=== PATIENT | male | born 1990 | race Caucasian/White ===

== ENCOUNTER 2018-05-27 09:02 | Emergency (ER) | payer BC, OTHER ==
[2018-05-27 09:28] VITALS: BP 120/74; PULSE 65; TEMP 98.8; BMI 21.6
--- NOTE | 2018-05-27 10:42 | PDOC ---
History of Present Illness - General Chief Complaint: Cold Symptoms Stated Complaint: LOWER BACK PAIN Time Seen by Provider: 05/27/18 09:51 History Source: Patient Exam Limitations: No Limitations - History of Present Illness Initial Comments: 05/27/18 patient came for evaluation of back pain related to frequent coughing over the past few days. States onset of fevers was yesterday, MAXIMUM TEMPERATURE 101. Has been using [id number]-[id number] medications with minimal resolved. Timing/Duration: reports: just prior to arrival Associated Symptoms: reports: cough, earache, facial pain, fever/chills, nasal congestion, nasal drainage Past History - Travel Traveled outside of the country in the last 30 days: No Close contact w/someone who was outside of country & ill: No - Past Medical History Allergies/Adverse Reactions: Allergies Allergy/AdvReac Type Severity Reaction Status Date / Time No Known Allergies Allergy Verified 05/15/14 11:00 Home Medications: Ambulatory Orders NK [No Known Home Medication] 05/15/14 - Suicide/Smoking/Psychosocial Hx Smoking History: Current every day smoker Have you smoked in the past 12 months: Yes Number of Cigarettes Smoked Daily: 10 Information on smoking cessation initiated: No Hx Alcohol Use: No Drug/Substance Use Hx: No Substance Use Type: Alcohol, Marijuana, Prescribed Review of Systems - Review of Systems Able to Perform ROS?: Yes Is the patient limited [place] proficient: Yes Constitutional: Yes: Symptoms Reported, See HPI, Chills, Fever, Loss of Appetite , Malaise HEENTM: Yes: Symptoms Reported, See HPI, Nose Congestion, Throat Pain Respiratory: Yes: Symptoms reported, See HPI, Cough, Wheezing Musculoskeletal: Yes: Symptoms Reported, See HPI, Muscle Pain Neurological: Yes: Symptoms reported, See HPI, Headache All Other Systems: Reviewed and Negative *Physical Exam - Vital Signs Last Vital Signs Temp Pulse Resp BP Pulse Ox 98.8 F 65 18 120/74 98 05/27/18 09:26 05/27/18 09:26 05/27/18 09:26 05/27/18 09:26 05/27/18 09:26 - Physical Exam Comments: 05/27/18 10:40 GENERAL: [ The pateint is awake, alert, and appropriately interactive.] EYES: [The pupils are equal, round, and reactive to light, with clear, conjunctiva.but glassy] NOSE: [The nose with clear drainage EARS: [The ear canals and tympanic membranes are congested but landmarks easily visualed ] THROAT: [The oropharynx is clear with erythema, no exudates. The mucous membranes are moist.] NECK: [The neck is supple with mildly tender adenopathy, no menigemous] CHEST: [The lungs are coarse but clear without crackles, or wheezes.] HEART: [Heart is regular rhythm, with normal S1 and S2, no murmurs.] ABDOMEN: [The abdomen is soft and nontender with normal bowel sounds. There is no organomegaly and no mass. There is no guarding or rebound.] EXTREMITIES: [Extremities are normal.] NEURO: [Behavior is normal for age.cranky but easily, Tone is normal.] SKIN: [Skin is unremarkable without rash or swelling. There is no bruising, and there are no other signs of injury.] General Appearance: Yes: Nourished, Appropriately Dressed HEENT: positive: SHIR[place], TMs Normal Moderate Sedation - Procedure Monitoring Vital Signs: Procedure Monitoring Vital Signs Temperature 98.8 F 05/27/18 09:26 Pulse Rate 65 05/27/18 09:26 Respiratory Rate 18 05/27/18 09:26 Blood Pressure 120/74 05/27/18 09:26 O2 Sat by Pulse Oximetry (%) 98 05/27/18 09:26 Progress Note - Progress Note Progress Note: Upper respiratory infection, however 5 days into illness therefore outside window for Tamiflu treatment. We'll continue conservative treatments and have follow-up with PMD as needed *DC/Admit/Observation/Transfer Diagnosis at time of Disposition: Upper respiratory infection, viral - Discharge Dispostion Disposition: HOME Condition at time of disposition: Stable Decision to Admit order: No - Referrals Referrals: Haja Petersen [Primary Care Provider] - - Patient Instructions Printed Discharge Instructions: DI for Viral Upper Respiratory Infection -- Adult Additional Instructions: Rest, drink lots of fluids: Teas, water, soups, Pedialyte Saltwater gargles Steamy showers/seem to face break up mucus Avoid contact with others until fevers and cough resolved Lots of handwashing and good hygiene Continue [id number] medications for symptomatic relief Tylenol or Motrin for fever and pain Followup with private physician in one to 2 days as needed Return to emergency department for worsened symptoms, fevers, dehydration - Post Discharge Activity Forms/Work/School Notes: Back to Work
== END 2018-05-27 10:47 | disposition home or self-care (01) ==
LOC: JERFT 09:02
DX: J06.9 Acute upper respiratory infection, unspecified (principal); M54.89 Other dorsalgia
CPT/HCPCS: 99281-25

== ENCOUNTER 2019-02-04 09:27 | Emergency (ER) | payer BC, OTHER ==
[2019-02-04 09:38] VITALS: BP 134/73; PULSE 76; TEMP 98.3; BMI 26.6
--- NOTE | 2019-02-04 10:09 | PDOC ---
History of Present Illness - General Chief Complaint: Pain Stated Complaint: CHEST PAIN Time Seen by Provider: 02/04/19 09:47 History Source: Patient - History of Present Illness Presenting Symptoms: Chest Pain Timing/Duration: reports: intermittent Past History - Past Medical History Allergies/Adverse Reactions: Allergies Allergy/AdvReac Type Severity Reaction Status Date / Time No Known Allergies Allergy Verified 02/04/19 09:38 Home Medications: Ambulatory Orders NK [No Known Home Medication] 05/15/14 COPD: No - Psycho Social/Smoking Cessation Hx Smoking History: Never smoked Have you smoked in the past 12 months: Yes Number of Cigarettes Smoked Daily: 10 Hx Alcohol Use: No Drug/Substance Use Hx: No Substance Use Type: Alcohol, Marijuana, Prescribed Review of Systems - Review of Systems Constitutional: No: Chills, Fever Respiratory: No: Cough, Shortness of Breath Cardiac (ROS): Yes: Chest Pain. No: Lightheadedness, Palpitations, Syncope *Physical Exam - Vital Signs Last Vital Signs Temp Pulse Resp BP Pulse Ox 98.3 F 76 14 134/73 99 02/04/19 09:33 02/04/19 09:33 02/04/19 09:33 02/04/19 09:33 02/04/19 09:33 - Physical Exam General Appearance: Yes: Appropriately Dressed. No: Apparent Distress HEENT: positive: Normal Voice Neck: positive: Supple Respiratory/Chest: positive: Lungs Clear, Normal Breath Sounds. negative: Respiratory Distress Cardiovascular: positive: Regular Rate, S1, S2 Integumentary: positive: Dry, Warm Neurologic: positive: Fully Oriented, Alert, Normal Mood/Affect Medical Decision Making - Medical Decision Making 02/04/19 10:10 28-year-old male, no significant history here with chest pain. Patient states for the past 3 days he wakes up with left-sided non-radiating chest pain that he is unable to describe, 4-5/10, intermittent and only worse with certain movements. No shortness of breath, palpitations cough fever or chills. No history of similar pain. No obvious inciting factors. No illicit drug use. No obvious risk factors for DVT/PE. No significant family history see exam CP No RF for cardiac source, PERCs out and no infectious sx Exam wl -EKG unremarkable -Dc to f/u with PMD as needed Discharge - Discharge Information Problems reviewed: Yes Clinical Impression/Diagnosis: Chest pain Qualifiers: Chest pain type: unspecified Qualified Code(s): R07.9 - Chest pain, unspecified Condition: Good Disposition: HOME - Follow up/Referral - Patient Discharge Instructions Patient Printed Discharge Instructions: DI for Chest Pain Additional Instructions: The cause of your chest pain is unclear at this time as your exam and EKG were normal here. If symptoms persist, please follow-up with your PMD for further evaluation - Post Discharge Activity
--- NOTE | 2019-02-04 11:26 | EKG ---
Test Reason : Blood Pressure : / mmHG Vent. Rate : 060 BPM Atrial Rate : 060 BPM P-R Int : 112 ms QRS Dur : 106 ms QT Int : 402 ms P-R-T Axes : 072 059 067 degrees QTc Int : 402 ms NORMAL SINUS RHYTHM INCOMPLETE RIGHT BUNDLE BRANCH BLOCK MODERATE VOLTAGE CRITERIA FOR LVH, MAY BE NORMAL VARIANT BORDERLINE ECG NO PREVIOUS ECGS AVAILABLE Confirmed by Hammad Hensley MD ([id number]) on 02/04/2019 11:25:58 AM Referred By: Confirmed By:Hammad Hensley MD
== END 2019-02-04 10:02 | disposition home or self-care (01) ==
LOC: JERFT 09:27
DX: R07.9 Chest pain, unspecified (principal)
CPT/HCPCS: 93005; 93010; 99282-25